=== PATIENT | male | born 1960 | race Caucasian/White ===

== ENCOUNTER 2019-09-11 06:22 | Day surgery (SDC) | payer OTHER ==
[~2019-09-11] VITALS: Ht 172.7 cm; Wt 147.4 kg
[2019-09-11] MEDS ORDERED: fentaNYL 0.05 MG/ML VIAL ONE (07:48)
[2019-09-11] MEDS ORDERED: LIDOCAINE 2% 100 MG/5 ML UJET TP ONE (07:48)
[2019-09-11] MEDS ORDERED: fentaNYL 0.05 MG/ML VIAL IVP ONE (08:15)
== END 2019-09-11 09:08 | disposition home or self-care (01) ==
LOC: MDS 06:22 → MMU 06:32 → MDS 09:08
PROVIDERS: ATTEND Internal Medicine Gastroenterology
DX: Z12.11 Encounter for screening for malignant neoplasm of colon (principal); K57.30 Diverticulosis of large intestine without perforation or abscess without bleeding; E11.9 Type 2 diabetes mellitus without complications; I10 Essential (primary) hypertension; I49.9 Cardiac arrhythmia, unspecified; E78.5 Hyperlipidemia, unspecified; E66.9 Obesity, unspecified; M19.90 Unspecified osteoarthritis, unspecified site; Z88.0 Allergy status to penicillin; Z79.84 Long term (current) use of oral hypoglycemic drugs; Z79.899 Other long term (current) drug therapy; Z68.43 Body mass index [BMI] 50.0-59.9, adult
CPT/HCPCS: 45378; J3010